=== PATIENT | female | born 1965 | race Caucasian/White ===

== ENCOUNTER 2017-11-09 05:00 | Emergency (ER) | payer OTHER ==
[~2017-11-09] VITALS: Ht 160 cm; Wt 87.1 kg
[2017-11-09 05:10] VITALS: Ht 160 cm; Wt 87.1 kg
[2017-11-09 08:28] VITALS: BP 136/78
== END 2017-11-09 08:28 | disposition home or self-care (01) ==
LOC: ED 05:00
DX: S30.0XXA Contusion of lower back and pelvis, initial encounter (principal); W01.10XA Fall on same level from slipping, tripping and stumbling with subsequent striking against unspecified object, initial encounter; Y93.89 Activity, other specified; Y92.89 Other specified places as the place of occurrence of the external cause; Y99.8 Other external cause status
CPT/HCPCS: J3010; Q0162